=== PATIENT | male | born 1950 | race Caucasian/White ===

== ENCOUNTER 2017-07-01 13:22 | Emergency (ER) | payer OTHER, MEDICAID ==
[~2017-07-01] VITALS: Ht 190.5 cm; Wt 93.0 kg
[2017-07-01 13:53] LABS: Basophils # (auto) 0.2 uL; Basophils % (auto) 2.4 % (0.0-2.0); CONDITION Y; Eosinophils # (auto) 0.5 uL; Eosinophils % (auto) 6.9 % (0.0-7.0); Hematocrit 51.3 % (41.0-53.0); Hemoglobin 17.5 g/dL (13.5-17.5); Lymphocytes # (auto) 1.6 uL; Lymphocytes % (auto) 22.3 % (10.0-50.0); Mean Corpuscular Hemoglobin 31.5 pg (28.0-32.0); Mean Corpuscular Hgb Conc. 34.1 g/dL (32.0-36.0); Mean Corpuscular Volume 92.4 fL (80.0-100.0); Mean Platelet Volume 8.6 fL (7.4-10.4); Monocytes # (auto) 0.6 uL; Monocytes % (auto) 7.8 % (0.0-12.0); Neutrophils # (auto) 4.4 uL; Neutrophils % (auto) 60.6 % (37.0-80.0); Platelet Count (auto) 295 10^3/uL (140-450); Red Cell Distribution Width 13.4 % (11.6-16.0); White Blood Cell 7.3 10^3/uL (4.4-10.8)
[2017-07-01 14:17] LABS: Albumin 4.1 g/dL (3.4-5.0); Alkaline Phosphatase 92 U/L (45-117); Anion Gap 7 (5-15); Aspartate Aminotransferase 30 U/L (15-37); BUN/Creatinine Ratio 12.6; Bilirubin, Total 1.8 mg/dL (0.2-1.0); Blood Urea Nitrogen 11 mg/dL (7-18); Calcium 8.9 mg/dL (8.5-10.1); Carbon Dioxide 32 mmol/L (21-32); Chloride 101 mmol/L (98-107); GFR African American 113 mL/min; GFR Non-African American 93 mL/min; Glucose 120 mg/dL (74-106); Magnesium 2.4 mg/dL (1.6-2.6); Potassium 3.2 mmol/L (3.5-5.1); Sodium 140 mmol/L (136-145); Total Protein 7.9 g/dL (6.4-8.2)
[2017-07-01] MEDS ORDERED: SODIUM CHLORIDE 0.9% 1,000 ML IV ONE (14:19)
[2017-07-01 14:25] VITALS: BP 144/97
[2017-07-01 15:03] LABS: Temperature: 21.8 C (20.0-25.0)
[2017-07-01] MEDS ORDERED: POTASSIUM CHL 10% (20 MEQ/15ML) ORAL SOLN PO ONE (15:30)
== END 2017-07-01 16:08 | disposition home or self-care (01) ==
LOC: ER 13:22
DX: I10 Essential (primary) hypertension (principal); E87.6 Hypokalemia; I70.0 Atherosclerosis of aorta; R06.02 Shortness of breath
CPT/HCPCS: 36415; 71020; 80053; 83735; 83880; 84443; 84484; 85025; 93005; 94761; 96360; 99285; J7030

== ENCOUNTER 2024-02-17 13:13 | Inpatient (IN) | payer OTHER, MEDICAID ==
[~2024-02-17] VITALS: Ht 190.5 cm; Wt 91.8 kg
[2024-02-17 14:06] LABS: Basophils # (auto) 0.1 10 ^3/uL (0-0.2); Eosinophils # (auto) 0.1 10 ^3/uL (0-0.8); Hematocrit 47.7 % (41.0-53.0); Hemoglobin 16.1 g/dL (13.5-17.5); Lymphocytes % (auto) 8.1 % (10.0-50.0); Mean Corpuscular Hemoglobin 29.4 pg (28.0-32.0); Mean Corpuscular Hgb Conc. 33.8 g/dL (32.0-36.0); Mean Corpuscular Volume 87.2 fL (80.0-100.0); Monocytes # (auto) 0.5 10 ^3/uL (0-1.3); Neutrophils # (auto) 10.8 10 ^3/uL (1.6-8.6); Neutrophils % (auto) 85.9 % (37.0-80.0); Red Blood Cells 5.48 10^6/uL (4.5-5.90); Red Cell Distribution Width 14.3 % (11.8-14.3); White Blood Cell 12.6 10^3/uL (4.4-10.8)
[2024-02-17 14:13] LABS: Urine Bacteria MOD /hpf (None Seen); Urine Blood 3+ /uL (Negative); Urine Clarity CLOUDY (Clear); Urine Color Yellow (Yellow); Urine Mucus MODERATE (None Seen); Urine Protein, UAD 1+ (Negative); Urine Specific Gravity 1.023 (1.001-1.035); Urine Urobilinogen Normal (Negative); Urine WBC 67 /hpf (0 - 3); Urine pH 5.5 (5.0-8.0)
[2024-02-17 14:21] LABS: Chloride 107 mmol/L (98-107); Potassium 4.7 mmol/L (3.5-5.1); Sodium 141 mmol/L (136-145)
[2024-02-17 14:22] LABS: Anion Gap 8 (5-15); Calcium 9.8 mg/dL (8.5-10.1); Carbon Dioxide 26 mmol/L (20-30)
[2024-02-17 14:27] LABS: BUN/Creatinine Ratio 13.5 (10.0-20.0); Blood Urea Nitrogen 14 mg/dL (9-23); Glucose 110 mg/dL (74-106)
[2024-02-17] MEDS ORDERED: SODIUM ZIRCONIUM CYCL 10 GM PAK PO ONE (14:45)
[2024-02-17] MEDS ORDERED: ALBUTEROL SULF 2.5 MG/0.5ML(0.5%) NEB SOLN NEB ONE (14:45)
[2024-02-17] MEDS ORDERED: CALCIUM GLUC 1,000mg/50ml-NS 50 ML IV ONE (14:45)
[2024-02-17] MEDS ORDERED: FUROSEMIDE 20 MG/2 ML VIAL IV ONE (14:45)
[2024-02-17] MEDS ORDERED: SODIUM BICARB 8.4% 50Meq/50ml SYR INJ IV ONE (14:45)
[2024-02-17] MEDS: cefTRIAXone 1GM/50ML D5W 50 ML IV ONE (15:18)
[2024-02-17] MEDS ORDERED: ACETAMINOPHEN 325 MG TAB PO PRN (15:45)
[2024-02-17] MEDS: SODIUM CHLORIDE 0.9% 1,000 ML IV SCH (17:20)
[2024-02-17] MEDS: MORPHINE SULFATE INJ 2 MG/ml SYRG IV PRN (17:34)
[2024-02-17 17:38] VITALS: PULSE 78; RESP 22; O2SAT 90
[2024-02-17 19:59] VITALS: PULSE 74; RESP 15; O2SAT 93
[2024-02-17] MEDS: cloNIDine HCL 0.1 MG TAB PO ONE (20:59)
[2024-02-17 22:35] VITALS: BP 142/90; PULSE 68; RESP 18; TEMP 97.8; O2SAT 92
[2024-02-17 22:45] VITALS: PULSE 68; RESP 16
[2024-02-18] VITALS (8 sets, daily range): BP systolic 135–162; BP diastolic 72–92; PULSE 59–78; RESP 16–18; TEMP 97.6–98.5; O2SAT 92–96
[2024-02-18] MEDS ORDERED: PNEUMOCOCCAL VACC POLYS 25 MCG/0.5 ML VIAL IM ONE (00:15)
[2024-02-18] MEDS ORDERED: MIRA25TA PO (00:48)
[2024-02-18] MEDS ORDERED: APIX5TAB PO (00:48)
[2024-02-18] MEDS ORDERED: NIFE1TAB31 PO (00:48)
[2024-02-18] MEDS ORDERED: POTA8TAB38 PO (00:48)
[2024-02-18] MEDS ORDERED: OMEP-448 PO (00:48)
[2024-02-18] MEDS: HYDROcodone-ACET 5/325MG TAB PO PRN (05:49)
[2024-02-18 06:57] LABS: Basophils # (auto) 0.1 10 ^3/uL (0-0.2); Basophils % (auto) 1.5 % (0.0-2.0); Eosinophils # (auto) 0.4 10 ^3/uL (0-0.8); Eosinophils % (auto) 4.5 % (0.0-7.0); Hematocrit 43.6 % (41.0-53.0); Hemoglobin 14.6 g/dL (13.5-17.5); Mean Corpuscular Hemoglobin 29.5 pg (28.0-32.0); Mean Corpuscular Hgb Conc. 33.5 g/dL (32.0-36.0); Mean Corpuscular Volume 88.1 fL (80.0-100.0); Monocytes # (auto) 0.9 10 ^3/uL (0-1.3); Monocytes % (auto) 9.2 % (0.0-12.0); Neutrophils # (auto) 5.8 10 ^3/uL (1.6-8.6); Neutrophils % (auto) 62.8 % (37.0-80.0); Nucleated Red Blood Cells % 0.1 %; Red Blood Cells 4.94 10^6/uL (4.5-5.90); Red Cell Distribution Width 14.2 % (11.8-14.3); White Blood Cell 9.3 10^3/uL (4.4-10.8)
[2024-02-18 07:03] LABS: Alkaline Phosphatase 60 U/L (46-116); Anion Gap 4 (5-15); Aspartate Aminotransferase 9 U/L (13-40); BUN/Creatinine Ratio 12.5 (10.0-20.0); Blood Urea Nitrogen 13 mg/dL (9-23); Carbon Dioxide 26 mmol/L (20-30); Chloride 110 mmol/L (98-107); Glucose 106 mg/dL (74-106); Potassium 4.1 mmol/L (3.5-5.1); Sodium 140 mmol/L (136-145)
[2024-02-18 07:04] LABS: Albumin 3.7 g/dL (3.2-4.8); Bilirubin, Total 1.2 mg/dL (0.2-1.0); Total Protein 5.9 g/dL (5.7-8.2)
[2024-02-18 08:24] LABS: Alanine Aminotransferase 18 U/L (7-40)
[2024-02-18] MEDS: cefTRIAXone 1GM/50ML D5W 50 ML IV SCH (10:01)
[2024-02-18] MEDS ORDERED: ALPR0.254 PO (17:13)
[2024-02-18] MEDS ORDERED: DRON400T PO (17:13)
[2024-02-18] MEDS ORDERED: ACET300T51 PO (17:13)
[2024-02-18] MEDS ORDERED: CETI10CH PO (17:13)
[2024-02-18] MEDS ORDERED: NITR100C6 PO (17:13)
[2024-02-18] MEDS ORDERED: METO-289 PO (17:13)
[2024-02-18] MEDS ORDERED: NITR0.4S29 SL (17:13)
[2024-02-18] MEDS ORDERED: HYDR-3682 PO (17:13)
[2024-02-18] MEDS ORDERED: ACET-6 PO (17:13)
[2024-02-18] MEDS ORDERED: ZOLP10TA6 PO (17:13)
[2024-02-18] MEDS ORDERED: BUDE1AER4 INH (17:13)
[2024-02-18] MEDS: TEMAZEPAM 15 MG CAP PO ONE (22:21)
[2024-02-19] VITALS (7 sets, daily range): BP systolic 131–163; BP diastolic 69–102; PULSE 58–100; RESP 16–20; TEMP 97.8–98.4; O2SAT 93–95
[2024-02-19] MEDS: hydrALAZINE HCL 20 MG/ML VL IV PRN (00:21)
[2024-02-19] MEDS ORDERED: CEPH250C PO (11:58)
[2024-02-19] MEDS ORDERED: ZOFR4T PO (11:59)
== END 2024-02-19 16:53 | disposition home or self-care (01) | DRG 690 ==
LOC: ER 13:13 → OVERFLOW 15:31 → WEST WING 15:33
PROVIDERS: ADMIT Nurse Practitioner Family; ATTEND Internal Medicine
DX: N30.01 Acute cystitis with hematuria (principal); I10 Essential (primary) hypertension; N28.1 Cyst of kidney, acquired; Z90.49 Acquired absence of other specified parts of digestive tract; Z87.442 Personal history of urinary calculi
CPT/HCPCS: 36415; 74176; 80048; 80053; 81001; 85025; 87086; 96374; G0378